=== PATIENT | female | born 1960 | race Caucasian/White ===

== ENCOUNTER 2016-10-20 12:40 | Outpatient (CLI) ==
[2016-10-20 15:41] LABS: BASOPHILS % (AUTO) 0.6 % (0.0-3.0); EOSINOPHILS # (AUTO) 0.3 K/ul (0.0-0.7); EOSINOPHILS % (AUTO) 4.4 % (0.0-7.0); HEMATOCRIT 39.9 % (37.0-47.0); HEMOGLOBIN 13.5 g/dl (12.0-16.0); IMMATURE GRANULOCYTE % (AUTO) 0.2 % (0.0-5.0); LYMPHOCYTES # (AUTO) 2.1 K/uL (0.60-3.4); LYMPHOCYTES % (AUTO) 33.3 (10.0-50.0); MEAN CORPUSCULAR HEMOGLOBIN 30.6 pg (27.0-31.0); MEAN CORPUSCULAR HGB CONC 33.8 (31.8-35.4); MEAN CORPUSCULAR VOLUME 90.5 fl (81.0-99.0); MONOCYTES # (AUTO) 0.4 K/uL (0.4-2.0); MONOCYTES % (AUTO) 5.7 (0-10); NEUTROPHILS # (AUTO) 3.6 K/ul (2.0-6.9); NEUTROPHILS % (AUTO) 55.8; PLATELET COUNT 330 10^3/uL (140-440); RED BLOOD COUNT 4.41 10^6/ul (4.20-5.40); WHITE BLOOD COUNT 6.37 K/ul (4.6-10.2)
[2016-10-20 16:09] LABS: ALBUMIN 3.9 g/dL (3.4-5.0); ALBUMIN/GLOBULIN RATIO 1.22; ANION GAP 16.1; BILIRUBIN,TOTAL 0.28 mg/dL (0.00-1.20); BUN/CREATININE RATIO 17.64; CALCIUM 9.6 mg/dL (8.2-10.2); CREATININE 0.85 mg/dL (0.60-1.30); POTASSIUM 4.1 mmol/L (3.5-5.10); TOTAL PROTEIN 7.1 g/dL (6.4-8.2)
== END 2016-10-20 12:41 | disposition home or self-care (01) ==
LOC: LAB 12:40
PROVIDERS: ATTEND Nurse Practitioner Family
DX: I88.9 Nonspecific lymphadenitis, unspecified (principal); E78.5 Hyperlipidemia, unspecified; Z72.0 Tobacco use
CPT/HCPCS: 36415; 80053; 80061; 82306; 84443; 85025; 87880

== ENCOUNTER 2016-10-21 14:47 | Outpatient (CLI) ==
--- NOTE | 2016-10-21 15:23 | CT ---
EXAM: CT scan of the neck soft tissues without contrast HISTORY: Nonspecific, lymphadenitis TECHNIQUE: Imaging of the neck soft tissues was performed without contrast. 3 mm thin axial images and coronal and sagittal reconstructions were provided for interpretation. Comparison none. FINDINGS: The parotid glands, submandibular hands appear normal. No acute abnormalities are seen w ithin the soft tissues of the nasopharynx and tonsils. The tongue base, epiglottis appear normal. No acute abnormalities are seen within the piriform sinuses. No abnormal lymph nodes are seen withi n the neck soft tissues. The superior mediastinum appears normal. Mild emphysematous changes are se en within the upper lung distribution. IMPRESSION: No acute abnormalities are seen within the soft tissues of the neck. Mild pulmonary emphysema.
== END 2016-10-21 14:48 | disposition home or self-care (01) ==
LOC: RAD 14:47
PROVIDERS: ATTEND Nurse Practitioner Family
DX: I88.9 Nonspecific lymphadenitis, unspecified (principal); Z86.39 Personal history of other endocrine, nutritional and metabolic disease

== ENCOUNTER 2016-12-01 13:17 | Outpatient (CLI) ==
[2016-12-01 13:43] LABS: ALBUMIN/GLOBULIN RATIO 1.14; ANION GAP 17.3; BILIRUBIN,TOTAL 0.39 mg/dL (0.00-1.20); BUN/CREATININE RATIO 13.25; CALCIUM 10.1 mg/dL (8.2-10.2); CREATININE 0.83 mg/dL (0.60-1.30); POTASSIUM 4.3 mmol/L (3.5-5.10); TOTAL PROTEIN 7.5 g/dL (6.4-8.2)
== END 2016-12-01 13:18 | disposition home or self-care (01) ==
LOC: LAB 13:17
PROVIDERS: ATTEND Nurse Practitioner Family
DX: E78.5 Hyperlipidemia, unspecified (principal)
CPT/HCPCS: 36415; 80053; 80061

== ENCOUNTER 2017-03-23 17:13 | Outpatient (CLI) ==
[2017-03-23 17:43] LABS: ALANINE AMINOTRANSFERASE 14 U/L (12-78); ALBUMIN 3.6 g/dL (3.4-5.0); ALBUMIN/GLOBULIN RATIO 1.13; ALKALINE PHOSPHATASE 92 U/L (42-98); ANION GAP 11.3; ASPARTATE AMINO TRANSFERASE 19 U/L (15-37); BLOOD UREA NITROGEN 15 mg/dL (7-18); BUN/CREATININE RATIO 17.44; CALCIUM 9.3 mg/dL (8.2-10.2); CARBON DIOXIDE 29 mmol/L (21-32); CHLORIDE 106 mmol/L (98-107); CHOL/HDL RATIO 4.1 (4.5-5.5); CHOLESTEROL 220 mg/dL (0-200); CREATININE 0.86 mg/dL (0.60-1.30); GLUCOSE 77 mg/dL (70-110); HDL CHOLESTEROL 54 mg/dL (35-80); POTASSIUM 4.3 mmol/L (3.5-5.10); SODIUM 142 mmol/L (136-145); TOTAL PROTEIN 6.8 g/dL (6.4-8.2); TRIGLYCERIDES 114 mg/dL (30-150); VLDL CHOLESTEROL 23 mg/dL (2-30)
[2017-03-23 18:06] LABS: BILIRUBIN,TOTAL < 0.3 mg/dL (0.00-1.20)
== END 2017-03-23 17:14 | disposition home or self-care (01) ==
LOC: LAB 17:13
PROVIDERS: ATTEND Nurse Practitioner Family
DX: E78.5 Hyperlipidemia, unspecified (principal)
CPT/HCPCS: 36415; 80053; 80061

== ENCOUNTER 2017-05-30 10:25 | Outpatient (CLI) | END 2017-05-30 10:26 | disposition home or self-care (01) | LOC: RHC-LAB 10:25 | PROVIDERS: ATTEND Emergency Medicine | DX: R68.89 Other general symptoms and signs (principal) | CPT/HCPCS: 87804 ==

== ENCOUNTER 2017-07-21 18:01 | Outpatient (CLI) | END 2017-07-21 18:02 | disposition home or self-care (01) | LOC: LAB 18:01 | PROVIDERS: ATTEND Nurse Practitioner Family | DX: E78.5 Hyperlipidemia, unspecified (principal); Z72.0 Tobacco use | CPT/HCPCS: 36415; 80053; 80061; 85025 ==

== ENCOUNTER 2017-08-26 09:39 | Outpatient (CLI) | END 2017-08-26 09:40 | disposition home or self-care (01) | LOC: RHC-LAB 09:39 | PROVIDERS: ATTEND Emergency Medicine | DX: J06.9 Acute upper respiratory infection, unspecified (principal) | CPT/HCPCS: 87651 ==

== ENCOUNTER 2017-12-22 10:08 | Outpatient (CLI) ==
--- NOTE | 2017-12-23 10:51 | MAMMO ---
EXAM: Bilateral digital screening mammogram (2-D and 3-D) History: Screening Comparison: Bilateral mammogram 11/26/2016 Findings: MLO and CC views of bilateral breasts demonstrate heterogeneously dense breast parenchyma w hich can obscure small lesions. CAD was reviewed by the radiologist. Tomosynthesis was performed. There are no dominant masses, no suspicious microcalcifications and no architectural distortions Impression: Stable negative mammogram. Recommend followup routine screening mammography in 1 year. BIRADS 1
== END 2017-12-22 10:09 | disposition home or self-care (01) ==
LOC: RAD 10:08
PROVIDERS: ATTEND Nurse Practitioner Family
DX: Z12.31 Encounter for screening mammogram for malignant neoplasm of breast (principal)
CPT/HCPCS: 77067

== ENCOUNTER 2018-01-16 11:46 | Outpatient (CLI) | END 2018-01-16 11:47 | disposition home or self-care (01) | LOC: RHC-LAB 11:46 → LAB 11:47 | PROVIDERS: ATTEND Nurse Practitioner Family | DX: D64.9 Anemia, unspecified (principal); E78.5 Hyperlipidemia, unspecified; Z72.0 Tobacco use | CPT/HCPCS: 36415; 80053; 80061; 84443; 85025 ==

== ENCOUNTER 2018-01-19 09:58 | Outpatient (CLI) | END 2018-01-19 09:59 | disposition home or self-care (01) | LOC: CAR 09:58 | PROVIDERS: ATTEND Nurse Practitioner Family | DX: R00.0 Tachycardia, unspecified (principal); R00.2 Palpitations; Z87.898 Personal history of other specified conditions | CPT/HCPCS: 93005; 93010 ==

== ENCOUNTER 2018-05-09 15:18 | Outpatient (CLI) | END 2018-05-09 15:19 | disposition home or self-care (01) | LOC: LAB 15:18 | PROVIDERS: ATTEND Nurse Practitioner Family | DX: E78.5 Hyperlipidemia, unspecified (principal); E78.1 Pure hyperglyceridemia | CPT/HCPCS: 36415; 80053; 80061 ==

== ENCOUNTER 2018-06-05 16:33 | Outpatient (CLI) | END 2018-06-05 16:34 | disposition home or self-care (01) | LOC: RHC-LAB 16:33 | PROVIDERS: ATTEND Nurse Practitioner Family | DX: R05 Cough (principal); R50.9 Fever, unspecified | CPT/HCPCS: 87502; 87651 ==

== ENCOUNTER 2018-06-23 12:51 | Outpatient (CLI) ==
[2018-06-23] MEDS ORDERED: ALBUTEROL 0.083% NEB NEB STA (13:10)
== END 2018-06-23 12:52 | disposition home or self-care (01) ==
LOC: CAR 12:51
PROVIDERS: ATTEND Nurse Practitioner Family
DX: R05 Cough (principal)